=== PATIENT | male | born 1990 | race Caucasian/White ===

== ENCOUNTER 2020-03-27 18:23 | Emergency (ER) | payer OTHER, SELFPAY ==
[2020-03-27 18:33] VITALS: BP 121/86; PULSE 80; RESP 15; TEMP 36.8; O2SAT 96; BMI 30.8
[2020-03-27 19:06] LABS: COVID19 -Nasal RAPID Negative (Negative)
[2020-03-27] MEDS: DICYCLOMINE 10 MG CAPSULE PO (19:52)
--- NOTE | 2020-03-27 21:27 | ED.ABDPAIN ---
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 Patient reports headache, chills, upper thoracic and neck aches, lower abdominal cramping and diarrhea for last 2 days. Patient denies known exposure to Covid, recent travel, eating undercooked or abnormal foods. Patient reports her family members without similar symptoms. He denies nausea, vomiting and reports has been able to hydrate well with liquid. Patient denies fever, changes in tasting. Patient reports having diarrhea averaging 5 times in 24 hour and had taken Imodium at home once. Patient denies chest pain, short of breath, or dizziness. Patient denies history of diverticulitis or ulcerative colitis. Patient denies blood in his stools but reports mucousy. Related Data Previous Rx's Medication Instructions Recorded dicyclomine 10 mg PO TID PRN #10 cap 03/27/20 Review of Systems <Johnathan OnealCamilaRICHARD VazquezP - Last Filed: 03/28/20 01:31> Review of Systems Narrative: General: Denies fever, (+) chills, fatigue, malaise, sweats. HEENT: Denies sinus pain, ear pain, sore throat, difficulty swallowing, dizziness. Respiratory: Denies dyspnea, cough, wheezing, hemoptysis, sputum. Cardiovascular: Denies chest pain, palpitations, orthopnea, edema. Gastrointestinal: See HPI : Denies dysuria, frequency, incontinence, hematuria, urinary retention. Musculoskeletal: See HPI Skin: Denies rash, skin lesions, or other. Neurologic: Denies weakness, (+) headache, numbness, change in speech, confusion, seizures, incoordination. Psychiatric: No concerning psychosocial issues. 12-point review of systems is negative except for those stated above. Patient History <DUSTIN Siegel - Last Filed: 03/28/20 01:31> Medical History No significant past medical history (Acute) Surgical History No pertinent past surgical history (Acute) Social History Smoking Status: Former smoker Smoking Status: Former smoker alcohol intake frequency: 0-2 drinks per day Substance Use Type: does not use Exam <DUSTIN Siegel - Last Filed: 03/28/20 01:31> Narrative Exam Narrative: General appearance: well developed, well nourished, in no acute distress. Head: normocephalic, atraumatic, no scalp lesions, non-tender. ENT: Hearing grossly intact. Nose without bleeding, purulent discharge. Mucous membrane slightly dry, no mucosal lesion. Throat without erythema, tonsillar hypertrophy or exudate. Uvula in midline, airway patent. Neck/Thyroid: neck supple, full range of motion, no visible masses or meningeal signs. No JVD, non-tender without lymphadenopathy. Skin: no suspicious rashes, lesions over visible areas. Warm and dry and appropriate color for ethnicity. Heart: no clubbing, no cyanosis, no edema. S1 and S2 normal. RRR w/o murmurs, clicks, or bruits. Lungs: Breathing even and unlabored. No stridor. No accessory muscles used. Able to speak in full sentences. Chest: normal shape and expansion. Abdomen: non-obese, non-distended. Mildly tender to palpate in all quadrants. Intact bowel sounds in 4 quadrant. No organomegaly. No rebound tenderness or guarding. Neurologic: alert and oriented. 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 Psych: good eye contact, normal affect. Initial Vital Signs Initial Vital Signs: Vital Signs Temperature 98.3 F 03/27/20 18:33 Pulse Rate 80 03/27/20 18:33 Respiratory Rate 15 03/27/20 18:33 Blood Pressure 121/86 03/27/20 18:33 Pulse Oximetry 96 03/27/20 18:33 <Nathaniel Enriquez MD - Last Filed: 03/28/20 03:09> Initial Vital Signs Initial Vital Signs: Vital Signs Temperature 98.3 F 03/27/20 18:33 Pulse Rate 80 03/27/20 18:33 Respiratory Rate 15 03/27/20 18:33 Blood Pressure 121/86 03/27/20 18:33 Pulse Oximetry 96 03/27/20 18:33 Scores <[facility] - Last Filed: 03/28/20 01:31> GCS [employer] coma scale eye opening: Spontaneous [employer] coma scale verbal response: Orientated Jennifer coma scale motor response: Obey commands Jennifer coma scale total score: 15 qSOFA Altered Mental Status (GCS <15): No Respiratory rate greater than/equal to 22: No Systolic blood pressure less than or equal to 100: No qSOFA Total: 0 0-1 Not High Risk 1-3 High risk Course <[facility] Last Filed: 03/28/20 01:31> Orders Ordered: ED Orders 03/27/20 18:41 COVID19 -ED/INPAT/OR/L&D Stat Discontinued Medications Dicyclomine HCl (Bentyl) 10 mg PO NOW ONE Stop: 03/27/20 19:46 Last Admin: 03/27/20 19:52 Dose: 10 mg Documented by: JANEL Vital Signs Vital signs: Vital Signs - 8 hr 03/27/20 18:33 Temperature 98.3 F Pulse Rate 80 Respiratory Rate 15 Blood Pressure 121/86 Pulse Oximetry 96 <Nathaniel Enriquez MD - Last Filed: 03/28/20 03:09> Orders Ordered: ED Orders 03/27/20 18:41 COVID19 -ED/INPAT/OR/L&D Stat Discontinued Medications Dicyclomine HCl (Bentyl) 10 mg PO NOW ONE Stop: 03/27/20 19:46 Last Admin: 03/27/20 19:52 Dose: 10 mg Documented by: JANEL Vital Signs Vital signs: Vital Signs - 8 hr 03/27/20 18:33 Temperature 98.3 F Pulse Rate 80 Respiratory Rate 15 Blood Pressure 121/86 Pulse Oximetry 96 MDM - Abdominal Pain <[facility] Last Filed: 03/28/20 01:31> Differential Diagnosis Differential diagnosis: Likely abdominal pain, acute appendicitis and other (diarrhea, Covid, dehydration, enteritis) Medical Records Attestation: I reviewed the patient's medical records. Lab Data Attestation: I reviewed the patient's lab results. 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 Patient reports he has been having headaches, chills, body aches, abdominal cramping pain with diarrhea. Patient is afebrile with stable blood pressure, heart rate, respiration. Patient reports is able to hydrate adequately without nausea or vomiting. Patient's physical exam is unremarkable with mild tenderness to palpate in all quadrant and slightly dried oral mucous membrane. Patient advised to hydrate adequately with clear liquid and continue with Imodium as long as no fever or not having infectious diarrhea. Strict return precautions were discussed with patient and advised to follow with primary care physician in 1 to 2 days. Patient verbalized understanding and agreement with the treatment plan. Patient given 1 day work off note. <Nathaniel Enriquez MD - Last Filed: 03/28/20 03:09> Lab Data Labs: Lab Results 03/27/20 Range/Units 18:41 COVID-19 PCR Negative (Negative) Discharge Plan Departure Patient Disposition: Home Clinical Impression: Diarrhea Qualifiers: Diarrhea type: unspecified type Qualified Code(s): R19.7 - Diarrhea, unspecified Back pain Qualifiers: Back pain location: back pain in unspecified location Chronicity: acute Back pain laterality: unspecified Qualified Code(s): M54.9 - Dorsalgia, unspecified Discharge Date/Time: 03/27/20 19:58 Instructions: Diarrhea, DI for Thoracic Back Pain Activity Restrictions/Additional Instructions: You have been diagnosed with [diarrhea, cramping abdominal discomfort, upper thoracic and neck discomfort, headache. Covid swab was negative.]. What to do: *Take your medications as directed. Take [id number] Tylenol and or Motrin as needed for discomfort. Take Imodium as needed for severe diarrhea as long as you do not have fever and follow the instruction in the box. You can take Bentyl as needed for abdominal cramping pain. Bentyl has been transmitted to [facility]. *Follow up with your primary care provider in 2-3 days, call for an appointment. Let them know you were seen in the ED and that we asked you to be seen in follow up. *Return to ED if you have any new, worsening, or concerning symptoms, such as [chest pain, breathing difficulty, unable to tolerate fluids, dizziness, fever, increasing abdominal pain or any acute concerns]. Prescriptions: New dicyclomine 10 mg capsule 10 mg PO TID PRN (Reason: abdominal discomfort) Qty: 10 RF: 0 Referrals: [facility] [Outside] Stand Alone Forms: Work Release Note <Nathaniel Enriquez MD - Last Filed: 03/28/20 03:09> Cosign [facility] Att[facility]: I was immediately available in the department for consultation. This documentation has been reviewed and I agree with assessment and plan. Supervised by Nathaniel Enriquez MD
== END 2020-03-27 19:58 | disposition home or self-care (01) ==
PROVIDERS: Emergency Medicine; Emergency Provider Nurse Practitioner Family
DX: R19.7 Diarrhea, unspecified (principal); M54.6 Pain in thoracic spine; M54.2 Cervicalgia; R51.9 Headache, unspecified; R68.83 Chills (without fever); R10.30 Lower abdominal pain, unspecified
CPT/HCPCS: 87635; 99283

== ENCOUNTER 2021-11-25 14:06 | Emergency (ER) | payer OTHER, SELFPAY ==
[2021-11-25 14:17] VITALS: BP 134/82; PULSE 80; RESP 18; TEMP 36.5; O2SAT 98; BMI 31.5
[2021-11-25] MEDS: KETOROLAC 30 MG/ML VIAL IM (14:48)
[2021-11-25] MEDS: PANTOPRAZOLE DR 20 MG TABLET PO (14:48)
[2021-11-25] MEDS: COLCHICINE 0.6 MG TABLET PO (14:49)
--- NOTE | 2021-11-25 14:59 | ED_ITS ---
HPI - Extremity Injury (Lower) <DUSTIN Meehan - Last Filed: 11/25/21 15:06> General Chief Complaint: Extremity Injury, Lower Stated Complaint: lt foot pain by big toe joint Time Seen by Provider: 11/25/21 14:16 Source: patient Mode of arrival: Ambulatory History of Present Illness HPI Narrative: This is a 30-year-old male who presents the emergency department with left great MTP joint pain which has been ongoing for approximately one month. Patient states that he went to [facility] approximately one month ago, this was x- rayed without any fracture and he was diagnosed with a foot sprain. He states he was given a walking boot and crutches but states that his pain has not gotten any better. He denies any significant alcohol intake, denies any history of gout. Patient denies any recent fever, balance problems, sensation changes in his foot, wound, or other problem. Related Data Previous Rx's Medication Instructions Recorded dicyclomine 10 mg capsule 10 mg PO TID PRN abdominal 03/27/20 discomfort #10 caps colchicine 0.6 mg tablet 0.6 mg PO DAILY #30 tabs 11/25/21 ketorolac 10 mg tablet 10 mg PO TID PRN pain 5 days #30 11/25/21 tabs omeprazole 20 mg tablet,delayed 20 mg PO QAM #30 tabs 11/25/21 release Review of Systems <DUSTIN Meehan - Last Filed: 11/25/21 15:06> Review of Systems Narrative: General: denies fever, chills Head/Neck: denies headache, neck pain Eyes: denies visual changes, eye pain Cardio: denies chest pain, palpitations Respiratory: denies shortness of breath, cough GI: denies abdominal pain, nausea, vomiting, or diarrhea : denies dysuria, hematuria or flank pain MSK: denies new joint pain, muscle weakness or swelling, endorses left great toe joint pain Skin: denies rash, itching or wound Neuro: denies numbness, tingling, dizziness Patient History <DUSTIN Meehan - Last Filed: 11/25/21 15:06> Medical History No significant past medical history Surgical History No pertinent past surgical history Social History Smoking Status: Former smoker Smoking Status: Former smoker alcohol intake frequency: 0-2 drinks per day Substance Use Type: does not use Exam <DUSTIN Meehan - Last Filed: 11/25/21 15:06> Narrative Exam Narrative: Independently reviewed vitals signs and nursing notes. General: cooperative, comfortable, in no acute distress, well groomed Head: atraumatic, symmetrical facial expressions Neck: supple Eyes: equal round and reactive, EOMI, conjunctiva normal Nose: nares patent, no rhinorrhea Mouth/Throat: moist mucus membranes Cardiovascular: regular rate and rhythm, no peripheral edema, warm extremities Respiratory: normal effort, able to speak in complete sentences, no audible wheezing, stridor, or rales. No retractions or tachypnea. GI: abdomen soft, nontender to palpation, nondistended, no masses, no exquisite tenderness with exam, without guarding or rebound. MSK: moves all extremities, neurovascularly intact, no weakness, normal tone, left MTP joint erythema without significant edema, wound, or tenderness anywhere else, brisk cap refill. Skin: brisk capillary refill, no rash, no erythema Neuro: normal speech and cognition, A&O x3 Psych: mental status is grossly normal, congruent mood, normal affect, pleasant and cooperative Initial Vital Signs Initial Vital Signs: Vital Signs Temperature 97.7 F 11/25/21 14:17 Pulse Rate 80 11/25/21 14:17 Respiratory Rate 18 11/25/21 14:17 Blood Pressure 134/82 11/25/21 14:17 Pulse Oximetry 98 11/25/21 14:17 Oxygen Delivery Method 11/25/21 14:17 <Osvaldo Cameron DO - Last Filed: 11/25/21 15:18> Initial Vital Signs Initial Vital Signs: Vital Signs Temperature 97.7 F 11/25/21 14:17 Pulse Rate 80 11/25/21 14:17 Respiratory Rate 18 11/25/21 14:17 Blood Pressure 134/82 11/25/21 14:17 Pulse Oximetry 98 11/25/21 14:17 Oxygen Delivery Method 11/25/21 14:17 Course <DUSTIN Meehan - Last Filed: 11/25/21 15:06> Orders Ordered: Discontinued Medications Colchicine (Colchicine 0.6 Mg Tablet) 0.6 mg PO NOW ONE Stop: 11/25/21 14:27 Last Admin: 11/25/21 14:49 Dose: 0.6 mg Documented By: C[place] Ketorolac Tromethamine (Ketorolac 30 Mg/Ml Vial) 30 mg IM NOW ONE Stop: 11/25/21 14:27 Last Admin: 11/25/21 14:48 Dose: 30 mg Documented By: C[place] Pantoprazole Sodium (Pantoprazole Dr 20 Mg Tablet) 20 mg PO NOW ONE Stop: 11/25/21 14:27 Last Admin: 11/25/21 14:48 Dose: 20 mg Documented By: C[place]AND Vital Signs Vital signs: Vital Signs - 8 hr 11/25/21 14:17 Temperature 97.7 F Pulse Rate 80 Respiratory Rate 18 Blood Pressure 134/82 Pulse Oximetry 98 Oxygen Delivery Method Room Air <Osvaldo Cameron DO - Last Filed: 11/25/21 15:18> Orders Ordered: Discontinued Medications Colchicine (Colchicine 0.6 Mg Tablet) 0.6 mg PO NOW ONE Stop: 11/25/21 14:27 Last Admin: 11/25/21 14:49 Dose: 0.6 mg Documented By: C[place]AND Ketorolac Tromethamine (Ketorolac 30 Mg/Ml Vial) 30 mg IM NOW ONE Stop: 11/25/21 14:27 Last Admin: 11/25/21 14:48 Dose: 30 mg Documented By: C[place]AND Pantoprazole Sodium (Pantoprazole Dr 20 Mg Tablet) 20 mg PO NOW ONE Stop: 11/25/21 14:27 Last Admin: 11/25/21 14:48 Dose: 20 mg Documented By: C[place]AND Vital Signs Vital signs: Vital Signs - 8 hr 11/25/21 14:17 Temperature 97.7 F Pulse Rate 80 Respiratory Rate 18 Blood Pressure 134/82 Pulse Oximetry 98 Oxygen Delivery Method Room Air MDM - Extremity Injury (Lower) <DUSTIN Meehan - Last Filed: 11/25/21 15:06> MDM Narrative Medical decision making narrative: This is a 30-year-old male presents emergency department with left great toe MTP joint pain and erythema for one month. He was initially diagnosed with a foot sprain and has been using a walking boot and crutches without improvement in his symptoms. X-ray was negative for fracture at the time. Patient has tenderness with palpation, this appears most like gout, there is no surrounding cellulitis, fluctuance, tenderness or erythema in any other joints, he does not have any deficits, he is neurovascularly intact, patient has had these symptoms for a month and has not tried anti-inflammatories or colchicine. He was treated today with 1.2 mg of colchicine, 30 mg IM Toradol and 20 mg Protonix. He was discharged home with colchicine 4.6 mg daily for gout flare until flare is resolved, ketorolac p.o. for pain, omeprazole daily for ulcer prevention and he is instructed to follow-up with [facility] prior to his departure on 11/28/2021. Patient states understanding, will follow-up accordingly, will return to the emergency department for any new or worsening symptoms. Patient is appropriate and amenable to discharge home. Vital signs are stable on repeat examination is unremarkable. Patient has been informed of results. Patient has been given strict return to ER precautions for any new or worsening symptoms. Patient understands to follow up closely with outpatient providers as instructed. Patient understands plan and agrees to discharge home. All questions and concerns answered at this time. Discharge Plan Departure Patient Disposition: Home Clinical Impression: Gout flare Qualifiers: Gout site: toe Gout etiology: unspecified cause Laterality: left Qualified Code(s): M10.9 - Gout, unspecified Instructions: Gout Activity Restrictions/Additional Instructions: *You have been diagnosed with a gout flare of your left metatarsal joint of your great toe. This is a very common place to get gout. Gout is best treated 1st with a strong anti-inflammatory AKA the injection of Toradol that you received in the ER today, and 2nd with colchicine. The 1st dose of colchicine is 1.2 mg for when you have a flare, and then a secondary dose today 1 hour afterwards of 0.6mg. Do not take more than 1.8mg each day or you will have diarrhea. [place] [facility] [place] [facility] for medical clearance. Please take omeprazole or Prilosec if your taking strong anti-inflammatories at home. You may take Toradol which you have been prescribed instead of ibuprofen, one pill every 6 hours as needed for pain. Please take Prilosec this whole time, take it 1st thing in the morning before any food and this will help prevent stomach ulcer. Your gout flare should calm down within 2-3 days, you may take this medication until your flare resolves and you can try taking just 0.6 mg daily until it goes away. I wish you the best and thank you for your service. *What to do: *Please continue to take your regular medications as directed. [x ] New medication prescriptions sent to your pharmacy: [ [facility]] [ ] New medication written as a paper prescription [ ] No new medications given *Please follow up with your primary care provider in 2-3 days, call for an appointment. Let them know you were seen in the Emergency Department and that we asked that you be seen for follow-up. We will electronically transmit a record of today's note if your PCP is in our system *If you do not have a primary care provider please contact [phone] to establish care with one of the [facility] primary care providers. *Return to Emergency Department if you should have any new, worsening or concerning symptoms, such as [fever greater than 101F, chills, worsening pain, persistent vomiting or other bothersome symptoms] Prescriptions: New colchicine 0.6 mg tablet 0.6 mg PO DAILY Qty: 30 0RF ketorolac 10 mg tablet 10 mg PO TID PRN (Reason: pain) 5 Days Qty: 30 0RF Rx Instructions: Take with food and water, take omeprazole in am concurrently. omeprazole 20 mg tablet,delayed release (DR/EC) 20 mg PO QAM Qty: 30 0RF No Action dicyclomine 10 mg capsule 10 mg PO TID PRN (Reason: abdominal discomfort) Qty: 10 0RF Visit Report Forms: Patient Portal/API <Osvaldo Cameron, DO - Last Filed: 11/25/21 15:18> Cosign ED Attending Cosignature Attestation: Dr Cameron Co-Sign Statement: I was available for consultation during this patient's emergency department visit. This chart is signed by myself for administrative purposes only. I did not have direct contact with this patient during this visit. They were seen independently by the APC.
--- NOTE | 2021-11-25 15:03 | PC.NURSE ---
assessment done by provider. meds given and discharge gone over by LLUVIA Michael
== END 2021-11-25 15:09 | disposition home or self-care (01) ==
PROVIDERS: Emergency Provider Nurse Practitioner Critical Care Medicine
DX: M10.9 Gout, unspecified (principal)
CPT/HCPCS: 96372; 99283; J1885

== ENCOUNTER → 2023-10-25 09:48 | Outpatient (CLI) | payer OTHER, SELFPAY ==
[2023-10-25 10:15] LABS: Appearance Urine UA CLEAR; Bilirubin Urine UA NEGATIVE (NEGATIVE); Color Urine UA YELLOW; Glucose Urine UA NEGATIVE (Negative); Ketones Urine UA NEGATIVE (NEGATIVE); Leukocyte Esterase Urine UA NEGATIVE (NEGATIVE); Nitrite Urine UA NEGATIVE (Negative); Occult Blood Urine UA NEGATIVE (Negative); Protein Urine UA NEGATIVE (Negative); Specific Gravity Urine UA 1.015 (1.000-1.035); Urobilinogen Urine UA 0.2 E.U./dL (0.2)
[2023-10-25 10:20] LABS: Add Manual Diff / Slide Review NO; Basophils Absolute Auto 0 /uL (0-100); Basophils Percent Auto 0.9 % (0-2); Eosinophils Absolute Auto 100 /uL (0-450); Eosinophils Percent Auto 2.9 % (2-4); Hematocrit 42.8 % (41-53); Hemoglobin 14.6 g/dL (13.5-17.5); Lymphocytes Absolute Auto 1700 /uL (1100-4500); Lymphocytes Percent Auto 40.6 % (25-40); Mean Corpuscular HGB Conc 34.3 % (30-36); Mean Corpuscular Hemoglobin 28.6 PG (26-34); Mean Corpuscular Volume 83.5 fL (80-100); Monocytes Absolute Auto 400 /uL (0-900); Monocytes Percent Auto 9.2 % (3-14); Neutrophils Absolute Auto 1900 /uL (1500-7000); Neutrophils Percent Auto 46.4 % (50-75); Platelet Count 309 X10^3/uL (150-400); Red Blood Cell Count 5.12 X10^6/uL (4.5-5.9); Red Cell Distribution Width 13.5 % (11.6-14.8); White Blood Cell Count 4.1 X10^3/uL (4.5-11.0)
[2023-10-25 10:43] LABS: Bacteria Urine None Seen; Culture Indicated Urine Cult Not Indicated; RBC Urine None Seen (0-5/HPF); Squamous Epithelial Cell Urine None Seen (0-5/HPF); Urine Volume 10mL (spun); WBC Urine None Seen (0-5/HPF)
[2023-10-25 10:53] LABS: Alanine Aminotransferase 84 IU/L (<50); Albumin 4.8 g/dL (3.5-5.0); Albumin Globulin Ratio 2.1 (1.0-2.8); Alkaline Phosphatase 66 U/L (38-126); Aspartate Aminotransferase 52 IU/L (17-59); BUN Creatinine Ratio 16.8 (6-22); Bilirubin Total 0.8 mg/dL (0.2-1.3); Blood Urea Nitrogen 17 mg/dL (9-20); Calcium 9.5 mg/dL (8.4-10.2); Carbon Dioxide 27 mmol/L (22-32); Chloride 106 mmol/L (98-107); Estimated Glomerular Filt Rate > 60 mL/min (>60); Globulin 2.3 g/dL (1.7-4.1); Glucose 96 mg/dL (70-100); HEMOLYSIS < 15 (0-50); Potassium 4.3 mmol/L (3.4-5.1); Sodium 141 mmol/L (137-145); Total Protein 7.1 g/dL (6.3-8.2)
== END ==
PROVIDERS: Referring Provider Internal Medicine; Visit Provider Internal Medicine
DX: D86.0 Sarcoidosis of lung (principal)
CPT/HCPCS: 36415; 80053; 81001; 82652; 85025

== ENCOUNTER → 2023-11-13 09:44 | Outpatient (CLI) | payer OTHER, SELFPAY | LOC: RESP 09:44 | PROVIDERS: Referring Provider Internal Medicine; Visit Provider Internal Medicine | DX: R06.00 Dyspnea, unspecified (principal); Z87.891 Personal history of nicotine dependence; R94.2 Abnormal results of pulmonary function studies; R06.02 Shortness of breath; D86.0 Sarcoidosis of lung | CPT/HCPCS: 94060; 94726; 94729 ==